=== PATIENT | female | born 1955 | race Caucasian/White ===

== ENCOUNTER 2023-02-14 17:31 | Observation (INO) ==
[2023-02-14] MEDS ORDERED: Iodixanol (CONTRAST) 320 MG/ML 100 ML SDV IV ONE (18:16)
[2023-02-14 18:20] LABS: ABS Eosinophils 0.1 10^3/uL (0.0-0.5); ABS Lymphocytes 2.1 10^3/uL (1.0-4.8); ABS Monocytes 0.9 10^3/uL (0.0-0.9); Eosinophil % 0.5 %; Hematocrit 36.2 % (35-45); Hemoglobin 12.5 g/dL (11.5-14.3); Lymphocyte % 20.8 %; Mean Corpuscular Hemoglobin 30.7 pg (27-33); Mean Corpuscular Hgb Conc 34.6 g/dL (31-36); Mean Corpuscular Volume 88.5 fL (80-97); Mean Platelet Volume 7.3 fL (7.5-11.2); Platelet Count 323 10^3/uL (150-450); Red Blood Count 4.09 10^6/uL (3.63-4.92); Red Cell Distribution Width 12.8 % (12-17)
[2023-02-14 18:32] LABS: Activated Partial Thrombo Time 31.6 seconds (26.0-38.0); INR 1.04 (0.83-1.13)
[2023-02-14 18:44] LABS: Albumin 4.2 g/dL (3.2-5.2); Albumin/Globulin Ratio 1.4 (1-3); Creatinine, Serum 1.04 mg/dL (0.51-0.95); Globulin 2.9 g/dL (2-4); HDL Cholesterol 54.2 mg/dL; Indirect Bilirubin 0.5 mg/dL (0.3-1.0); Potassium 3.9 mmol/L (3.5-5.0); Total Bilirubin 0.5 mg/dL (0.2-1.0); Total Protein 7.1 g/dL (6.4-8.9); eGFR CKD-EPI 58.5 (>60)
[2023-02-14 20:08] LABS: High Sensitivity Troponin 1 Hr 8 pg/mL (<15)
[2023-02-14] MEDS ORDERED: Enoxaparin 40 MG/0.4 ML SYR SUBCUT SCH (21:00)
[2023-02-14 21:36] LABS: Urine Appearance Clear; Urine Bilirubin Negative (Negative); Urine Blood Negative (Negative); Urine Color Colorless; Urine Glucose Negative (Negative); Urine Ketones Negative (Negative); Urine Nitrite Negative (Negative); Urine Protein Negative (Negative); Urine Specific Gravity 1.019 (1.002-1.030); Urine Urobilinogen Negative (Negative)
[2023-02-15] MEDS ORDERED: Sulfur Hexaflouride MICROSPHR 25 MG VIAL ONE (09:36)
[2023-02-15 10:47] VITALS: BP 138/74
== END 2023-02-15 10:46 | disposition home or self-care (01) ==
LOC: ED 17:31 → EDHOLD 17:31 → SUATTDRO 20:04 → EDHOLD 02-15 10:45
PROVIDERS: ADMIT Internal Medicine; ATTEND Hospitalist